=== PATIENT | female | born 1960 | race Hispanic/Latino ===

== ENCOUNTER 2016-08-01 21:26 | Emergency (ER) | payer OTHER ==
[~2016-08-01] VITALS: Ht 172.7 cm; Wt 80.3 kg
[~2016-08-01 21:26] MED LIST: AMLODIPINE BESY10 MG PO; ATORVASTATIN CA40 MG PO; BLOOD PRESSURE MED PO; CIPRO500 MG PO; FIORICET,ESG1 TABLET PO; HUMALOG100 UNIT/1 SC; HYDROCODON-ACE1 EAC7 PO; IBUPROFEN800 MG PO; KEFLEX500 MG PO; LANTUS 10100 UNITS/ SC; LANTUS 3 M100 UNITS1 SC; LORTAB 5-325 M1 EACH PO; MACROBID100 MG PO; NORCO 5/3251 TABLET PO; PIOGLITAZONE HC15 MG PO; PRILOSEC40 MG PO; PROMETHAZINE HC25 M1 PO; TYLENOL WITH C1 EACH PO; VALIUM2 MG PO; ZESTORETIC 20-1 EAC1 NG; ZOFRAN ODT8 MG PO
[2016-08-01] MEDS ORDERED: NORCO 5/3251 TABLET PO (23:59)
[2016-08-01] MEDS ORDERED: ANTIVERT25 MG PO (23:59)
[2016-08-01] MEDS ORDERED: MOTRIN800 MG PO (23:59)
[2016-08-02 00:28] VITALS: BP 00/0
== END 2016-08-02 00:30 | disposition home or self-care (01) ==
LOC: EME 21:26 → RME 21:26
DX: S09.90XA Unspecified injury of head, initial encounter (principal); S80.12XA Contusion of left lower leg, initial encounter; S40.021A Contusion of right upper arm, initial encounter; W01.0XXA Fall on same level from slipping, tripping and stumbling without subsequent striking against object, initial encounter; Y92.811 Bus as the place of occurrence of the external cause; I10 Essential (primary) hypertension; E11.9 Type 2 diabetes mellitus without complications; Z79.4 Long term (current) use of insulin; F32.9 Major depressive disorder, single episode, unspecified; Z85.038 Personal history of other malignant neoplasm of large intestine
CPT/HCPCS: 73060; 73590; 99281; 99283

== ENCOUNTER 2017-03-13 18:27 | Emergency (ER) | payer OTHER ==
[~2017-03-13] VITALS: Ht 160 cm; Wt 84.5 kg
[~2017-03-13 18:27] MED LIST changes: +ANTIVERT25 MG PO; +MOTRIN800 MG PO
[2017-03-13 18:57] LABS: HEMATOCRIT 36.6 % (36.0-46.0); HEMOGLOBIN 12.1 G/DL (11.9-15.5); MCH 26.2 PG (29.0-34.0); MCHC 33.1 G/DL (30.0-36.0); MCV 79.2 FL (83-99); PLATELET COUNT 251 K/uL (156-360); RBC DIS.WIDTH-CV 13.8 % (11.8-14.6); RBC DIS.WIDTH-SD 39.6 % (39-53); RED BLOOD COUNT 4.62 M/uL (3.80-5.20); WHITE BLOOD COUNT 10.5 K/uL (4.1-10.2)
[2017-03-13 19:05] LABS: CHLORIDE 98 mEq/L (99-109); POTASSIUM 3.2 mEq/L (3.7-5.4); SODIUM 138 mEq/L (136-147)
[2017-03-13 19:07] LABS: GLUCOSE 395 mg/dL (70-99)
[2017-03-13 19:10] LABS: CREATININE 1.5 mg/dL (0.6-1.3); GFR ESTIMATE (CALCULATED) 38 mL/min/
[2017-03-13 19:11] LABS: UREA NITROGEN (BUN) 18 mg/dL (9-23)
[2017-03-13 19:18] LABS: TROP-I INTERPRETATION NEGATIVE; TROPONIN-I < 0.01 ng/mL (0.0-0.30)
[2017-03-13 22:50] VITALS: BP 145/86
== END 2017-03-13 22:51 | disposition home or self-care (01) ==
LOC: EME 18:27
DX: R42 Dizziness and giddiness (principal); I10 Essential (primary) hypertension; R11.0 Nausea; R51 Headache; Z86.73 Personal history of transient ischemic attack (TIA), and cerebral infarction without residual deficits; E11.9 Type 2 diabetes mellitus without complications; Z79.4 Long term (current) use of insulin; Z85.038 Personal history of other malignant neoplasm of large intestine
CPT/HCPCS: 70450; 71046; 80048; 84484; 85027; 93005

== ENCOUNTER 2017-03-28 15:23 | Emergency (ER) | payer OTHER ==
[~2017-03-28] VITALS: Ht 160 cm; Wt 88.0 kg
[2017-03-28 18:51] VITALS: BP 176/91
== END 2017-03-28 19:05 | disposition home or self-care (01) ==
LOC: EME 15:23
DX: R51 Headache (principal); I10 Essential (primary) hypertension; D32.0 Benign neoplasm of cerebral meninges; Z86.73 Personal history of transient ischemic attack (TIA), and cerebral infarction without residual deficits; E11.9 Type 2 diabetes mellitus without complications; Z79.4 Long term (current) use of insulin; Z85.038 Personal history of other malignant neoplasm of large intestine
CPT/HCPCS: 70450; 99281; 99283

== ENCOUNTER 2017-05-12 16:20 | Emergency (ER) | payer OTHER ==
[~2017-05-12] VITALS: Ht 160 cm; Wt 83.0 kg
[2017-05-12 17:09] LABS: HEMATOCRIT 38.4 % (36.0-46.0); HEMOGLOBIN 13.1 G/DL (11.9-15.5); MCH 26.5 PG (29.0-34.0); MCHC 34.1 G/DL (30.0-36.0); MCV 77.7 FL (83-99); PLATELET COUNT 270 K/uL (156-360); RBC DIS.WIDTH-CV 13.5 % (11.8-14.6); RBC DIS.WIDTH-SD 37.8 % (39-53); RED BLOOD COUNT 4.94 M/uL (3.80-5.20); WHITE BLOOD COUNT 12.4 K/uL (4.1-10.2)
[2017-05-12 17:23] LABS: CHLORIDE 95 mEq/L (99-109); POTASSIUM 3.4 mEq/L (3.7-5.4); SODIUM 131 mEq/L (136-147)
[2017-05-12 17:29] LABS: CREATININE 1.6 mg/dL (0.6-1.3); GFR ESTIMATE (CALCULATED) 36 mL/min/
[2017-05-12 17:30] LABS: UREA NITROGEN (BUN) 18 mg/dL (9-23)
[2017-05-12 17:31] LABS: CREATINE KINASE 60 IU/L (1-294)
[2017-05-12 17:49] LABS: GLUCOSE 510 mg/dL (70-99)
[2017-05-12 19:30] LABS: APPEARANCE SL.HAZY ((CLEAR)); BILIRUBIN NEGATIVE; BLOOD NEGATIVE; COLOR YELLOW ((YELLOW)); GLUCOSE (STRIP) >=500; KETONES NEGATIVE; LEUKOCYTES NEGATIVE; NITRITE NEGATIVE; PROTEIN (STRIP) 100; SPECIFIC GRAVITY 1.025 (1.000-1.030); UROBILINOGEN 0.2 MG/DL (0.2-1.0)
[2017-05-12 19:48] LABS: BACTERIA NONE SEEN /HPF; EPITHELIAL CELLS 2+ /HPF; MUCUS NONE SEEN /LPF; WHITE BLOOD CELLS 0-5 /HPF (0-5)
[2017-05-12] MEDS ORDERED: ANTIVERT25 MG PO (20:03)
[2017-05-12] MEDS ORDERED: FIORICET 50-301 EAC1 PO (20:03)
[2017-05-12 20:50] VITALS: BP 189/124
== END 2017-05-12 20:51 | disposition home or self-care (01) ==
LOC: EME 16:20
PROVIDERS: Physician Assistant
DX: R51 Headache (principal); I10 Essential (primary) hypertension; E11.65 Type 2 diabetes mellitus with hyperglycemia; Z79.4 Long term (current) use of insulin; J45.909 Unspecified asthma, uncomplicated; F32.9 Major depressive disorder, single episode, unspecified; G43.909 Migraine, unspecified, not intractable, without status migrainosus
CPT/HCPCS: 80048; 81003; 82550; 82948; 85027; 93005; 99281; 99285; J0780; J1885; J7030